=== PATIENT | male | born 1945 | race Caucasian/White ===

== ENCOUNTER 2018-09-21 07:09 | Day surgery (SDC) | payer MEDICARE ==
[~2018-09-21 07:09] MED LIST: Acetaminophen TAB* 325 MG PO PRN; Buffered Lidocaine 1% SYRIN* 1 ML/SYRINGE INTRADERM ONE
[2018-09-21] MEDS ORDERED: Lidocaine 1%* 5 ML VIAL ONE (08:01)
[2018-09-21] MEDS ORDERED: Cyclopentolate 1% OPTH.SOL* 2 ML BTL ONE (08:01)
[2018-09-21] MEDS ORDERED: Tetracaine 0.5% OPTH.SOL 4 ML* 1 DROP BTL ONE (08:01)
[2018-09-21] MEDS ORDERED: Neomycin/Polymy/Dex OPHTH.OIN* 3.5 GM ONE (08:01)
[2018-09-21] MEDS ORDERED: Ketorolac 0.5% OPHTH (NF) 0.5 % 5 ML BTL ONE (08:01)
[2018-09-21] MEDS ORDERED: Tropicamide 1% OPTH.SOL* BTL ONE (08:01)
[2018-09-21] MEDS ORDERED: Phenylephrine OPHTH SOL 2.5%* 2 ML ONE (08:01)
[2018-09-21] MEDS ORDERED: Midazolam* 1 MG/ML 2 ML VIAL (2 MG) ONE (08:24)
[2018-09-21 09:23] VITALS: BP 166/76
--- NOTE | 2018-09-21 10:31 | OP ---
DATE OF OPERATION/DATE OF DICTATION: 09/21/2018. DATE OF : 1945. SURGEON: Dr. Jayson Camacho. CALL MANAGER: None. ANESTHESIA: Topical with intravenous sedation. PRE-OP DIAGNOSIS: Cataract, left eye. POST-OP DIAGNOSIS: Cataract, left eye. OPERATIVE PROCEDURE: Phacoemulsification and cataract extraction with posterior chamber intraocular lens implant, left eye. COMPLICATIONS: None. BLOOD LOSS: None. OPERATIVE FINDINGS: The patient was brought to the operating room and received a small amount of int ravenous sedation. A drop of Tetracaine was placed in his left eye. He was prepped and draped in th e usual sterile fashion for ophthalmic surgery and attention was directed to the left eye where a spe culum was placed. A paracentesis was created at the 5 o'clock position and 0.1 cc of 1 percent prese rvative-free Lidocaine was injected into the anterior chamber followed by DisCoVisc. The eye was dig itally stabilized while a 2.75 mm keratome was used to create a triplanar clear corneal incision at t he 3 o'clock position. A continuous curvilinear capsulorrhexis was created with a cystotome and Utra ta forceps. BSS on a cannula was used to hydrodissect the lens from the capsule. Phacoemulsificatio n was performed in a [id number]-[id number] technique to create four fragments which were removed. Resid ual cortical material was removed with irrigation and aspiration. DisCoVisc was used to inflate the c apsular bag and an AUOOTO 13.5 diopter lens was folded and inserted into the capsular bag. DisCoVisc was removed using irrigation and aspiration. BSS on a cannula was used to hydrate the corneal jazmine a and seal the wound. At the end of the case the pupil was round and the lens was centered. The eye was of normal pressure and the wound was water tight. The speculum was removed and topical Maxitrol ointment was placed on the surface of the eye. The eye was closed, patched and shielded and the jamila ent was sent to the recovery room in stable condition with post operative instructions and follow-up appointment given. [id number] #: [id number]
== END 2018-09-21 09:23 | disposition home or self-care (01) ==
LOC: OREAST 07:09
PROVIDERS: ATTEND Ophthalmology
DX: H25.042 Posterior subcapsular polar age-related cataract, left eye (principal); I10 Essential (primary) hypertension; C83.33 Diffuse large B-cell lymphoma, intra-abdominal lymph nodes; Z85.028 Personal history of other malignant neoplasm of stomach
CPT/HCPCS: A9270-GY; J2250; V2632

== ENCOUNTER 2018-09-28 11:26 | Day surgery (SDC) | payer MEDICARE ==
[2018-09-28] MEDS ORDERED: Midazolam* 1 MG/ML 2 ML VIAL (2 MG) ONE (13:01)
[2018-09-28 13:42] VITALS: BP 141/64
[2018-09-28] MEDS ORDERED: Lidocaine 1%* 5 ML VIAL ONE (15:39)
[2018-09-28] MEDS ORDERED: Cyclopentolate 1% OPTH.SOL* 2 ML BTL ONE (15:39)
[2018-09-28] MEDS ORDERED: Neomycin/Polymy/Dex OPHTH.OIN* 3.5 GM ONE (15:40)
[2018-09-28] MEDS ORDERED: Tetracaine 0.5% OPTH.SOL 4 ML* 1 DROP BTL ONE (15:40)
[2018-09-28] MEDS ORDERED: Ketorolac 0.5% OPHTH (NF) 0.5 % 5 ML BTL ONE (15:40)
[2018-09-28] MEDS ORDERED: Phenylephrine OPHTH SOL 2.5%* 2 ML ONE (15:40)
[2018-09-28] MEDS ORDERED: Tropicamide 1% OPTH.SOL* BTL ONE (15:40)
--- NOTE | 2018-09-28 22:00 | OP ---
DATE OF OPERATION: 09/28/18 [facility] DATE OF : [birth year] SURGEON: Dr. Jayson Camacho. BERRY PLANTER: None. ANESTHESIA: Topical with intravenous sedation. PRE-OP DIAGNOSIS: Cataract, right eye. POST-OP DIAGNOSIS: Cataract, right eye. OPERATIVE PROCEDURE: Phacoemulsification and cataract extraction with posterior chamber intraocular lens implant, right eye. COMPLICATIONS: None. BLOOD LOSS: None. DESCRIPTION OF PROCEDURE: The patient was brought to the operating room and received a small amount of intravenous sedation. A drop of Tetracaine was placed in his right eye. He was prepped and draped in the usual sterile fashion for ophthalmic surgery and attention was directed to the right eye where a speculum was placed. A paracentesis was created at the 11 o'clock position and 0.1 cc of 1 percent preservative-free Lidocaine was injected into the anterior chamber followed by DisCoVisc. The eye was digitally stabilized while a 2.75 mm keratome was used to create a triplanar clear corneal incision at the 9 o'clock position. A continuous curvilinear capsulorrhexis was created with a cystotome and Utrata forceps. BSS on a cannula was used to hydrodissect the lens from the capsule. Phacoemulsification was performed in a divide-and- conquer technique to create four fragments which were removed. Residual cortical material was removed with irrigation and aspiration. DisCoVisc was used to inflate the capsular bag and an AU00T0 12.5 diopter lens was folded and inserted into the capsular bag. DisCoVisc was removed using irrigation and aspiration. BSS on a cannula was used to hydrate the corneal stroma and seal the wound. At the end of the case the pupil was round and the lens was centered. The eye was of normal pressure and the wound was water tight. The speculum was removed and topical Maxitrol ointment was placed on the surface of the eye. The eye was closed, patched and shielded and the patient was sent to the recovery room in stable condition with post operative instructions and follow-up appointment given. [id number]/[facility] #: [id number]
== END 2018-09-28 13:43 | disposition home or self-care (01) ==
LOC: OREAST 11:26
PROVIDERS: ATTEND Ophthalmology
DX: H25.041 Posterior subcapsular polar age-related cataract, right eye (principal); I10 Essential (primary) hypertension; Z85.028 Personal history of other malignant neoplasm of stomach; C83.33 Diffuse large B-cell lymphoma, intra-abdominal lymph nodes
CPT/HCPCS: A9270-GY; J2250; V2632

== ENCOUNTER 2023-10-10 10:29 | Inpatient (IN) ==
[2023-10-10] MEDS: Iodixanol (CONTRAST) 320 MG/ML 100 ML SDV IV ONE (10:43)
[2023-10-10 11:14] LABS: ABS Eosinophils 0.1 10^3/uL (0.0-0.5); ABS Lymphocytes 0.8 10^3/uL (1.0-4.8); ABS Monocytes 0.4 10^3/uL (0.0-1.1); ABS Neutrophils 3.5 10^3/uL (1.5-7.6); ABS Nucleated RBC 0.01 10^3/ul; Eosinophil % 1.5 %; Hematocrit 40.9 % (38-53); Hemoglobin 14.5 g/dL (13.2-16.3); Lymphocyte % 17.2 %; Mean Corpuscular Hemoglobin 35.8 pg (27-33); Mean Corpuscular Hgb Conc 35.6 g/dL (31-36); Mean Corpuscular Volume 100.5 fL (80-97); Mean Platelet Volume 8.3 fL (7.5-11.2); Nucleated Red Blood Cells % 0.1 %/100WBC (0.0-0.8); Platelet Count 176 10^3/uL (150-450); Red Blood Count 4.07 10^6/uL (4.06-5.63); White Blood Count 4.9 10^3/uL (3.6-10.2)
[2023-10-10 11:16] LABS: Urine Appearance Clear; Urine Bilirubin Negative (Negative); Urine Blood Negative (Negative); Urine Color Light-Yellow; Urine Glucose Negative (Negative); Urine Ketones Negative (Negative); Urine Nitrite Negative (Negative); Urine Protein Negative (Negative); Urine Specific Gravity 1.029 (1.002-1.030); Urine Urobilinogen Negative (Negative)
[2023-10-10 11:19] LABS: Activated Partial Thrombo Time 29.6 seconds (26.0-38.0); INR 1.21 (0.83-1.13)
[2023-10-10] MEDS ORDERED: Labetalol IV 5 MG/ML 20 ml VIAL IV PUSH ONE (11:20)
[2023-10-10] MEDS ORDERED: niCARdipine 0.1MG/ML IVPREMIX 20 MG/200 ML BAG IV ONE (11:23)
[2023-10-10] MEDS: niCARdipine 0.1MG/ML IVPREMIX 20 MG/200 ML BAG IV SCH (11:25)
[2023-10-10 11:32] LABS: ALT 23 U/L (7-52); Albumin 3.9 g/dL (3.2-5.2); Albumin/Globulin Ratio 1.3 (1-3); Alkaline Phosphatase 89 U/L (35-149); Blood Urea Nitrogen 15 mg/dL (6-24); CO2 Carbon Dioxide 28 mmol/L (22-32); Calcium 8.6 mg/dL (8.6-10.3); Chloride 104 mmol/L (101-111); Cholesterol 136 mg/dL; Creatinine, Serum 0.82 mg/dL (0.67-1.17); Globulin 2.9 g/dL (2-4); Glucose 106 mg/dL (70-100); HDL Cholesterol 30.1 mg/dL; LDL Cholesterol 75 mg/dL; Sodium 136 mmol/L (135-145); Total Protein 6.8 g/dL (6.4-8.9); Triglycerides 154 mg/dL
[2023-10-10 11:34] LABS: Anion Gap 4 mmol/L (2-16)
[2023-10-10 11:52] LABS: High Sens Troponin Baseline 10 pg/mL (<20)
[2023-10-10] MEDS: TENECTEPLASE 50 MG VIAL KIT 5 MG/ML (reconstituted) IV ONE (12:13)
[2023-10-10 13:30] LABS: Potassium Redraw 3.7 mmol/L (3.5-5.0)
[2023-10-10] MEDS: Ondansetron 4 mg VIAL 2 MG/ML 2 ml VIAL IV PRN (14:36)
[2023-10-10] MEDS: fentaNYL INFUSION 50 mcg/mL VL 2,500 MCG/50 ML VIAL IV SCH (16:58)
[2023-10-10] MEDS: Rocuronium 50 mg VIAL 10 mg/ml 5 ml VIAL (50 mg) ONE (17:21)
[2023-10-10] MEDS: Succinylcholine 200 mg VIAL 20 mg/ml 10 ml VIAL (200 mg) ONE (17:21)
[2023-10-10] MEDS ORDERED: Chlorhexidine MOUTHWASH 0.12% 15 ML UDC TOPICAL SCH (18:00)
[2023-10-10 18:11] VITALS: BP 158/91
[2023-10-10] MEDS: Prochlorperazine 5 mg/ml 2 ml VIAL (10 mg) IV ONE (18:40)
[2023-10-10] MEDS: niCARdipine 0.1MG/ML IVPREMIX 20 MG/200 ML BAG IV ONE (18:40)
[2023-10-10] MEDS: Propofol 10 mg/ml 100 ML BTL 1,000 MG/100 ML BTL IV SCH (18:41)
[2023-10-10] MEDS: Propofol 10 mg/ml 100 ML BTL 1,000 MG/100 ML BTL ONE (18:41)
== END 2023-10-10 13:25 | disposition short-term general hospital (02) | DRG 62 ==
LOC: ED 10:29 → EDHOLD 12:32 → ICU 13:24 → UNDODISIN 13:25 → ICU 13:30
PROVIDERS: ADMIT Internal Medicine; ATTEND Internal Medicine

== ENCOUNTER 2023-11-13 07:22 | Inpatient (IN) ==
[2023-12-11] MEDS: Potassium & Sodium Phos 250 mg = 1 PACKET G TUBE SCH (21:52)
[2023-12-11] MEDS: Senna TAB 8.6 mg TAB G TUBE SCH (21:53)
[2023-12-13] MEDS: Al Hydrox/Mg Hydrox/Simet LIQ 30 ML UDC PO ONE (05:02)
[2023-12-13 05:54] LABS: ABS Basophils 0.1 10^3/uL (0.0-0.1); ABS Eosinophils 0.2 10^3/uL (0.0-0.5); ABS Lymphocytes 0.9 10^3/uL (1.0-4.8); ABS Monocytes 0.4 10^3/uL (0.0-1.1); ABS Nucleated RBC 0.01 10^3/ul; Eosinophil % 3.5 %; Hemoglobin 10.5 g/dL (13.2-16.3); Lymphocyte % 14.3 %; Mean Corpuscular Hemoglobin 34.3 pg (27-33); Mean Corpuscular Hgb Conc 34.9 g/dL (31-36); Mean Corpuscular Volume 98.3 fL (80-97); Nucleated Red Blood Cells % 0.1 %/100WBC (0.0-0.8); Platelet Count 244 10^3/uL (150-450); Red Blood Count 3.05 10^6/uL (4.06-5.63); Red Cell Distribution Width 16.2 % (12-17); White Blood Count 6.6 10^3/uL (3.6-10.2)
[2023-12-13 06:53] LABS: Albumin 2.8 g/dL (3.2-5.2); Albumin/Globulin Ratio 0.9 (1-3); Calcium 8.3 mg/dL (8.6-10.3); Creatinine, Serum 0.69 mg/dL (0.67-1.17); Globulin 3.1 g/dL (2-4); Total Bilirubin 0.6 mg/dL (0.2-1.0); Total Protein 5.9 g/dL (6.4-8.9); eGFR CKD-EPI 95.3 (>60)
[2023-12-13] MEDS: Ondansetron 4 mg VIAL 2 MG/ML 2 ml VIAL IV PRN (17:42)
[2023-12-14] MEDS: Scopolamine 1 mg/72hr PATCH TRANSDERM SCH (10:04)
[2023-12-14] MEDS: Famotidine SUSP ORALSYR 8 MG/ML G TUBE SCH (10:06)
[2023-12-16 06:11] LABS: ABS Eosinophils 0.1 10^3/uL (0.0-0.5); ABS Lymphocytes 0.9 10^3/uL (1.0-4.8); ABS Monocytes 0.4 10^3/uL (0.0-1.1); ABS Neutrophils 5.9 10^3/uL (1.5-7.6); Eosinophil % 1.8 %; Hematocrit 28.5 % (38-53); Hemoglobin 10.1 g/dL (13.2-16.3); Lymphocyte % 12.3 %; Mean Corpuscular Hgb Conc 35.5 g/dL (31-36); Mean Corpuscular Volume 98.7 fL (80-97); Mean Platelet Volume 7.3 fL (7.5-11.2); Platelet Count 193 10^3/uL (150-450); Red Blood Count 2.88 10^6/uL (4.06-5.63); Red Cell Distribution Width 16.7 % (12-17); White Blood Count 7.4 10^3/uL (3.6-10.2)
[2023-12-16 06:43] LABS: Albumin 2.7 g/dL (3.2-5.2); Albumin/Globulin Ratio 0.9 (1-3); Calcium 8.1 mg/dL (8.6-10.3); Creatinine, Serum 0.65 mg/dL (0.67-1.17); Potassium 3.9 mmol/L (3.5-5.0); Total Bilirubin 0.6 mg/dL (0.2-1.0); Total Protein 5.7 g/dL (6.4-8.9)
[2023-12-16 22:51] LABS: Phosphorus 3.7 mg/dL (2.5-5.0)
[2023-12-17] MEDS: Potassium & Sodium Phos 250 mg = 1 PACKET G TUBE SCH (20:45)
[2023-12-17] MEDS: Famotidine SUSP ORALSYR 8 MG/ML G TUBE SCH (20:46)
[2023-12-20 09:46] LABS: Calcium 8.1 mg/dL (8.6-10.3); Creatinine, Serum 0.59 mg/dL (0.67-1.17); eGFR CKD-EPI 99.9 (>60)
[2023-12-23 05:41] LABS: ABS Eosinophils 0.2 10^3/uL (0.0-0.5); ABS Lymphocytes 0.9 10^3/uL (1.0-4.8); ABS Monocytes 0.4 10^3/uL (0.0-1.1); ABS Neutrophils 3.8 10^3/uL (1.5-7.6); Eosinophil % 3.4 %; Hematocrit 29.8 % (38-53); Hemoglobin 10.4 g/dL (13.2-16.3); Lymphocyte % 16.6 %; Mean Corpuscular Hemoglobin 34.5 pg (27-33); Mean Corpuscular Hgb Conc 34.9 g/dL (31-36); Mean Corpuscular Volume 98.7 fL (80-97); Mean Platelet Volume 7.8 fL (7.5-11.2); Platelet Count 216 10^3/uL (150-450); Red Blood Count 3.02 10^6/uL (4.06-5.63); Red Cell Distribution Width 17.3 % (12-17); White Blood Count 5.3 10^3/uL (3.6-10.2)
[2023-12-23 06:06] LABS: Albumin 2.8 g/dL (3.2-5.2); Albumin/Globulin Ratio 0.9 (1-3); Calcium 8.2 mg/dL (8.6-10.3); Creatinine, Serum 0.66 mg/dL (0.67-1.17); Total Bilirubin 0.7 mg/dL (0.2-1.0); Total Protein 5.8 g/dL (6.4-8.9); eGFR CKD-EPI 96.6 (>60)
[2023-12-23 08:01] LABS: Phosphorus 4.2 mg/dL (2.5-5.0)
[2023-12-23] MEDS: Potassium & Sodium Phos 250 mg = 1 PACKET G TUBE SCH (10:39)
[2023-12-24] MEDS: Ondansetron SOLN ORALSYR 0.8 MG/ML PO SCH (10:29)
[2023-12-25 09:29] LABS: Albumin 2.8 g/dL (3.2-5.2); Albumin/Globulin Ratio 0.9 (1-3); Calcium 8.2 mg/dL (8.6-10.3); Creatinine, Serum 0.67 mg/dL (0.67-1.17); Globulin 3.1 g/dL (2-4); Total Bilirubin 0.7 mg/dL (0.2-1.0); Total Protein 5.9 g/dL (6.4-8.9); eGFR CKD-EPI 96.2 (>60)
[2023-12-25] MEDS: Lidocaine PATCH 5% PATCH TRANSDERM SCH (11:25)
[2023-12-25 12:12] LABS: Phosphorus 4.3 mg/dL (2.5-5.0)
[2023-12-25 18:40] LABS: TSH Ultra Thyroid Stim Horm 2.76 mcIU/mL (0.34-5.60)
[2023-12-25 18:54] LABS: Magnesium 1.9 mg/dL (1.9-2.7)
[2023-12-25 19:12] LABS: Ferritin 106.2 ng/mL (24-336); Free T4 1.47 ng/dL (0.61-1.12)
[2023-12-26 05:14] LABS: ABS Eosinophils 0.2 10^3/uL (0.0-0.5); ABS Lymphocytes 0.9 10^3/uL (1.0-4.8); ABS Monocytes 0.3 10^3/uL (0.0-1.1); ABS Neutrophils 2.7 10^3/uL (1.5-7.6); Eosinophil % 4.3 %; Hematocrit 28.2 % (38-53); Mean Corpuscular Hemoglobin 35.2 pg (27-33); Mean Corpuscular Hgb Conc 35.6 g/dL (31-36); Mean Corpuscular Volume 98.9 fL (80-97); Mean Platelet Volume 7.7 fL (7.5-11.2); Platelet Count 194 10^3/uL (150-450); Red Blood Count 2.86 10^6/uL (4.06-5.63); Red Cell Distribution Width 17.1 % (12-17); White Blood Count 4.1 10^3/uL (3.6-10.2)
[2023-12-26] MEDS: PAIN RELIEVING RUB (MENTHOL/SALICYLATE) 1 APPLIC TUBE TOPICAL SCH (15:44)
[2023-12-27] MEDS ORDERED: Glycerin ADULT 2.4 gm SUPP PR PRN (09:17)
[2023-12-27] MEDS: Sulfur Hexaflouride MICROSPHR 25 MG VIAL IV ONE (11:01)
[2023-12-27] MEDS: Senna TAB 8.6 mg TAB G TUBE SCH (21:37)
[2023-12-28] MEDS: Ondansetron SOLN ORALSYR 0.8 MG/ML PO PRN (05:41)
[2023-12-28] MEDS: Ondansetron SOLN ORALSYR 0.8 MG/ML PO SCH (05:41)
[2023-12-28 06:14] LABS: ABS Eosinophils 0.1 10^3/uL (0.0-0.5); ABS Lymphocytes 0.7 10^3/uL (1.0-4.8); ABS Monocytes 0.3 10^3/uL (0.0-1.1); ABS Neutrophils 4.9 10^3/uL (1.5-7.6); Eosinophil % 2.3 %; Hematocrit 29.3 % (38-53); Hemoglobin 10.3 g/dL (13.2-16.3); Lymphocyte % 11.4 %; Mean Corpuscular Hemoglobin 34.9 pg (27-33); Mean Corpuscular Volume 99.6 fL (80-97); Mean Platelet Volume 8.1 fL (7.5-11.2); Platelet Count 199 10^3/uL (150-450); Red Blood Count 2.94 10^6/uL (4.06-5.63); Red Cell Distribution Width 17.1 % (12-17); White Blood Count 6.1 10^3/uL (3.6-10.2)
[2023-12-28 06:48] LABS: Albumin 2.8 g/dL (3.2-5.2); Calcium 8.2 mg/dL (8.6-10.3); Creatinine, Serum 0.69 mg/dL (0.67-1.17); Globulin 2.8 g/dL (2-4); Potassium 4.2 mmol/L (3.5-5.0); Total Bilirubin 0.5 mg/dL (0.2-1.0); Total Protein 5.6 g/dL (6.4-8.9); eGFR CKD-EPI 95.3 (>60)
[2024-01-01 10:46] LABS: Albumin/Globulin Ratio 0.8 (1-3); Calcium 8.6 mg/dL (8.6-10.3); Creatinine, Serum 0.74 mg/dL (0.67-1.17); Globulin 3.6 g/dL (2-4); Potassium 4.1 mmol/L (3.5-5.0); Total Bilirubin 1.1 mg/dL (0.2-1.0); Total Protein 6.6 g/dL (6.4-8.9); eGFR CKD-EPI 93.3 (>60)
[2024-01-01 10:58] LABS: Hemoglobin 10.7 g/dL (13.2-16.3); Mean Corpuscular Hemoglobin 33.5 pg (27-33); Mean Corpuscular Hgb Conc 33.5 g/dL (31-36); Mean Corpuscular Volume 99.8 fL (80-97); Mean Platelet Volume 8.4 fL (7.5-11.2); Platelet Count 193 10^3/uL (150-450); Red Blood Count 3.21 10^6/uL (4.06-5.63); Red Cell Distribution Width 17.4 % (12-17); White Blood Count 19.2 10^3/uL (3.6-10.2)
[2024-01-01] MEDS ORDERED: Zosyn per Pharmacy NOTE FOLLOW UP SCH (12:00)
[2024-01-01 12:55] LABS: ABS Basophils 0.1 10^3/uL (0.0-0.1); ABS Lymphocytes 0.8 10^3/uL (1.0-4.8); ABS Neutrophils 17.3 10^3/uL (1.5-7.6); Lymphocyte % 4.2 %
[2024-01-01] MEDS: Piperacillin/Tazobac 3.375 BAG 3.375 GM/100 ML BAG IV ONE (13:22)
[2024-01-01 16:44] VITALS: BP 117/62
[2024-01-01] MEDS ORDERED: ZOSYN 3.375 GM Q8H per EXTENDED INFUSION IV SCH (18:00)
== END 2024-01-01 23:36 | disposition short-term general hospital (02) | DRG 64 ==
LOC: PMRU 12-11 11:31
PROVIDERS: ADMIT Physical Medicine & Rehabilitation; ATTEND Physical Medicine & Rehabilitation

== ENCOUNTER 2024-01-01 16:13 | Inpatient (IN) ==
[2024-01-01 17:12] LABS: Hematocrit 30.5 % (38-53); Hemoglobin 10.6 g/dL (13.2-16.3); Mean Corpuscular Hemoglobin 34.9 pg (27-33); Mean Corpuscular Hgb Conc 34.8 g/dL (31-36); Mean Corpuscular Volume 100.3 fL (80-97); Mean Platelet Volume 8.4 fL (7.5-11.2); Platelet Count 181 10^3/uL (150-450); Red Blood Count 3.05 10^6/uL (4.06-5.63); Red Cell Distribution Width 17.6 % (12-17); White Blood Count 6.7 10^3/uL (3.6-10.2)
[2024-01-01 17:15] LABS: Albumin 2.8 g/dL (3.2-5.2); Albumin/Globulin Ratio 0.9 (1-3); Calcium 8.3 mg/dL (8.6-10.3); Creatinine, Serum 0.82 mg/dL (0.67-1.17); Globulin 3.1 g/dL (2-4); Magnesium 1.5 mg/dL (1.9-2.7); Potassium 4.2 mmol/L (3.5-5.0); Total Bilirubin 1.3 mg/dL (0.2-1.0); Total Protein 5.9 g/dL (6.4-8.9); eGFR CKD-EPI 90.5 (>60)
[2024-01-01 17:16] LABS: INR 1.78 (0.83-1.13)
[2024-01-01 17:22] LABS: C Reactive Protein 296.38 mg/L (<8.01)
[2024-01-01] MEDS: LACTATED RINGERS SEPSIS IV ONE (17:29)
[2024-01-01] MEDS: Acetaminophen IV 1 GM/100ML 920 MG/92 ML BAG IV ONE (17:37)
[2024-01-01 17:55] LABS: ABS Lymphocytes 0.4 10^3/uL (1.0-4.8); ABS Neutrophils 6.3 10^3/uL (1.5-7.6); ABS Nucleated RBC 0.01 10^3/ul; Eosinophil % 0.1 %; Lymphocyte % 6.1 %; Nucleated Red Blood Cells % 0.1 %/100WBC (0.0-0.8)
[2024-01-01] MEDS ORDERED: Vancomycin 1,250 MG in NS 0.9% 250 ml 250 ML IVPB SCH (18:00)
[2024-01-01 18:45] LABS: High Sensitivity Troponin 1 Hr 49 pg/mL (<20)
[2024-01-01] MEDS: Norepinephrine 4 MG/250mL D5W 4,000 MCG/250 ML BAG IV SCH (19:01)
[2024-01-01] MEDS: Amiodarone 150 mg IVPREMIX 150 MG/100 ML BAG IV ONE (19:43)
[2024-01-01] MEDS: Cefepime 2 GM in Dextrose 2 GM/50 ML BAG IV ONE (19:44)
[2024-01-01 19:51] LABS: Urine Appearance Turbid; Urine Bilirubin Negative (Negative); Urine Blood Negative (Negative); Urine Color Yellow; Urine Glucose Negative (Negative); Urine Ketones Trace (Negative); Urine Nitrite Negative (Negative); Urine Protein 1+ (>=30 mg/dL) (Negative); Urine Specific Gravity 1.029 (1.002-1.030); Urine Urobilinogen 1+ (Negative)
[2024-01-01 19:56] LABS: Venous Bicarbonate HCO3 26.6 mmol/L (24-28)
[2024-01-01] MEDS: Vancomycin 1,000 MG - ED ONCE IVPB ONE (20:07)
[2024-01-01 20:09] LABS: Urine Bacteria 1+ /HPF (Absent); Urine Red Blood Cell Trace(0-2/hpf) /HPF (0-Trace); Urine Squamous Epithelial Cell Present /HPF (Absent); Urine White Blood Cell 3+(>20/hpf) /HPF (0-Trace)
[2024-01-01] MEDS: Magnesium Sulf 4 GM/100 ML IV 4,000 MG/100 ML BAG IVPB ONE (22:45)
[2024-01-02] MEDS ORDERED: Vancomycin per Pharmacy 1 EA NOTE FOLLOW UP SCH (01:00)
[2024-01-02 02:21] LABS: High Sensitivity Troponin 3 Hr 75 pg/mL (<20)
[2024-01-02] MEDS: Enoxaparin 60 MG/0.6 ML SYR SUBCUT SCH (03:45)
[2024-01-02 04:19] LABS: ABS Lymphocytes 0.6 10^3/uL (1.0-4.8); ABS Monocytes 0.4 10^3/uL (0.0-1.1); ABS Neutrophils 12.6 10^3/uL (1.5-7.6); ABS Nucleated RBC 0.01 10^3/ul; Eosinophil % 0.3 %; Hematocrit 26.7 % (38-53); Hemoglobin 9.4 g/dL (13.2-16.3); Lymphocyte % 4.4 %; Mean Corpuscular Hemoglobin 35.1 pg (27-33); Mean Corpuscular Hgb Conc 35.3 g/dL (31-36); Mean Corpuscular Volume 99.3 fL (80-97); Mean Platelet Volume 8.1 fL (7.5-11.2); Nucleated Red Blood Cells % 0.1 %/100WBC (0.0-0.8); Platelet Count 160 10^3/uL (150-450); Red Blood Count 2.69 10^6/uL (4.06-5.63); Red Cell Distribution Width 17.7 % (12-17); White Blood Count 13.7 10^3/uL (3.6-10.2)
[2024-01-02] MEDS: Cefepime 2 GM in Dextrose 2 GM/50 ML BAG IV SCH (04:28)
[2024-01-02 05:02] LABS: Albumin 2.2 g/dL (3.2-5.2); Albumin/Globulin Ratio 0.8 (1-3); Calcium 7.7 mg/dL (8.6-10.3); Creatinine, Serum 0.71 mg/dL (0.67-1.17); Globulin 2.6 g/dL (2-4); Magnesium 2.6 mg/dL (1.9-2.7); Phosphorus 2.9 mg/dL (2.5-5.0); Potassium 3.8 mmol/L (3.5-5.0); Total Bilirubin 1.2 mg/dL (0.2-1.0); Total Protein 4.8 g/dL (6.4-8.9); eGFR CKD-EPI 94.5 (>60)
[2024-01-02] MEDS: Vancomycin 1,250 MG in NS 0.9% 250 ml 250 ML IVPB SCH (07:27)
[2024-01-02] MEDS: Acetaminophen IV 1 GM/100ML 1,000 MG/100 ML BAG IV PRN (08:42)
[2024-01-02] MEDS: Enoxaparin 80 MG/0.8 ML SYR SUBCUT SCH (11:31)
[2024-01-02] MEDS: PAIN RELIEVING RUB (MENTHOL/SALICYLATE) 1 APPLIC TUBE TOPICAL PRN (16:18)
[2024-01-02] MEDS: Ondansetron 4 mg VIAL 2 MG/ML 2 ml VIAL IV PRN (20:03)
[2024-01-02] MEDS: Famotidine SUSP ORALSYR 8 MG/ML FEED TUBE SCH (20:56)
[2024-01-02] MEDS: Senna TAB 8.6 mg TAB PO SCH (20:56)
[2024-01-03 05:13] LABS: ABS Lymphocytes 0.2 10^3/uL (1.0-4.8); ABS Monocytes 0.2 10^3/uL (0.0-1.1); ABS Neutrophils 4.2 10^3/uL (1.5-7.6); Eosinophil % 0.7 %; Hematocrit 24.3 % (38-53); Hemoglobin 8.5 g/dL (13.2-16.3); Lymphocyte % 5.3 %; Mean Corpuscular Hemoglobin 34.7 pg (27-33); Mean Corpuscular Hgb Conc 34.8 g/dL (31-36); Mean Corpuscular Volume 99.6 fL (80-97); Mean Platelet Volume 7.9 fL (7.5-11.2); Platelet Count 126 10^3/uL (150-450); Red Blood Count 2.44 10^6/uL (4.06-5.63); Red Cell Distribution Width 17.4 % (12-17); White Blood Count 4.7 10^3/uL (3.6-10.2)
[2024-01-03 05:52] LABS: Albumin 2.1 g/dL (3.2-5.2); Albumin/Globulin Ratio 0.8 (1-3); Calcium 7.4 mg/dL (8.6-10.3); Creatinine, Serum 0.63 mg/dL (0.67-1.17); Globulin 2.6 g/dL (2-4); Magnesium 1.9 mg/dL (1.9-2.7); Potassium 3.7 mmol/L (3.5-5.0); Total Bilirubin 0.5 mg/dL (0.2-1.0); Total Protein 4.7 g/dL (6.4-8.9)
[2024-01-03] MEDS ORDERED: Vancomycin Trough Check NOTE FOLLOW UP ONE (06:00)
[2024-01-03] MEDS: [UNRECOGNIZED DRUG - OTHER] PO SCH (09:15)
[2024-01-03] MEDS: Metoclopramide 5 MG/ML VIAL (10 mg) IV SLOW PU ONE (15:06)
[2024-01-04 05:37] LABS: Hematocrit 24.7 % (38-53); Hemoglobin 8.6 g/dL (13.2-16.3); Mean Corpuscular Hemoglobin 34.3 pg (27-33); Mean Corpuscular Hgb Conc 34.8 g/dL (31-36); Mean Corpuscular Volume 98.4 fL (80-97); Mean Platelet Volume 7.8 fL (7.5-11.2); Platelet Count 134 10^3/uL (150-450); Red Blood Count 2.51 10^6/uL (4.06-5.63); White Blood Count 4.5 10^3/uL (3.6-10.2)
[2024-01-04 06:24] LABS: Albumin 2.2 g/dL (3.2-5.2); Albumin/Globulin Ratio 0.8 (1-3); Calcium 7.7 mg/dL (8.6-10.3); Creatinine, Serum 0.57 mg/dL (0.67-1.17); Globulin 2.7 g/dL (2-4); Magnesium 1.9 mg/dL (1.9-2.7); Phosphorus 2.8 mg/dL (2.5-5.0); Potassium 3.5 mmol/L (3.5-5.0); Total Bilirubin 0.6 mg/dL (0.2-1.0); Total Protein 4.9 g/dL (6.4-8.9)
[2024-01-04 07:40] LABS: ABS Lymphocytes 0.4 10^3/uL (1.0-4.8); ABS Monocytes 0.3 10^3/uL (0.0-1.1); ABS Neutrophils 3.7 10^3/uL (1.5-7.6); Eosinophil % 0.9 %; Lymphocyte % 8.9 %; RBC Morphology Normal (Normal)
[2024-01-04] MEDS: Potassium Chloride LIQUID 20 MEQ/15 ML LIQUID PEG TUBE ONE (14:46)
[2024-01-04] MEDS: Magnesium Sulfate 2 gm BAG 2 GM/50 ML BAG IVPB ONE (14:46)
[2024-01-05 04:46] LABS: ABS Eosinophils 0.1 10^3/uL (0.0-0.5); ABS Lymphocytes 0.6 10^3/uL (1.0-4.8); ABS Monocytes 0.5 10^3/uL (0.0-1.1); ABS Neutrophils 3.4 10^3/uL (1.5-7.6); Eosinophil % 2.2 %; Hematocrit 25.4 % (38-53); Hemoglobin 8.8 g/dL (13.2-16.3); Lymphocyte % 12.7 %; Mean Corpuscular Hemoglobin 34.2 pg (27-33); Mean Corpuscular Hgb Conc 34.7 g/dL (31-36); Mean Corpuscular Volume 98.8 fL (80-97); Mean Platelet Volume 7.5 fL (7.5-11.2); Nucleated Red Blood Cells % 0.1 %/100WBC (0.0-0.8); Platelet Count 146 10^3/uL (150-450); Red Blood Count 2.57 10^6/uL (4.06-5.63); Red Cell Distribution Width 16.9 % (12-17); White Blood Count 4.5 10^3/uL (3.6-10.2)
[2024-01-05 05:25] LABS: Albumin 2.4 g/dL (3.2-5.2); Albumin/Globulin Ratio 0.8 (1-3); Calcium 7.8 mg/dL (8.6-10.3); Creatinine, Serum 0.56 mg/dL (0.67-1.17); Globulin 2.9 g/dL (2-4); Magnesium 2.2 mg/dL (1.9-2.7); Phosphorus 3.3 mg/dL (2.5-5.0); Potassium 4.1 mmol/L (3.5-5.0); Total Bilirubin 0.6 mg/dL (0.2-1.0); Total Protein 5.3 g/dL (6.4-8.9); eGFR CKD-EPI 101.5 (>60)
[2024-01-05] MEDS: hydrALAZINE 20 mg/ml 1 ML Vial IV IV SLOW PU ONE (11:26)
[2024-01-05 12:38] LABS: TSH Ultra Thyroid Stim Horm 4.04 mcIU/mL (0.34-5.60)
[2024-01-06 04:47] LABS: ABS Eosinophils 0.1 10^3/uL (0.0-0.5); ABS Lymphocytes 0.6 10^3/uL (1.0-4.8); ABS Monocytes 0.7 10^3/uL (0.0-1.1); ABS Neutrophils 6.8 10^3/uL (1.5-7.6); Eosinophil % 0.8 %; Hematocrit 29.3 % (38-53); Hemoglobin 10.2 g/dL (13.2-16.3); Lymphocyte % 7.2 %; Mean Corpuscular Hemoglobin 34.2 pg (27-33); Mean Corpuscular Hgb Conc 34.7 g/dL (31-36); Mean Corpuscular Volume 98.5 fL (80-97); Mean Platelet Volume 7.4 fL (7.5-11.2); Platelet Count 198 10^3/uL (150-450); Red Blood Count 2.98 10^6/uL (4.06-5.63); Red Cell Distribution Width 17.2 % (12-17); White Blood Count 8.2 10^3/uL (3.6-10.2)
[2024-01-06 05:23] LABS: Albumin 2.7 g/dL (3.2-5.2); Albumin/Globulin Ratio 0.8 (1-3); Calcium 8.2 mg/dL (8.6-10.3); Creatinine, Serum 0.55 mg/dL (0.67-1.17); Globulin 3.2 g/dL (2-4); Phosphorus 4.1 mg/dL (2.5-5.0); Potassium 3.9 mmol/L (3.5-5.0); Total Bilirubin 0.7 mg/dL (0.2-1.0); Total Protein 5.9 g/dL (6.4-8.9); eGFR CKD-EPI 102.1 (>60)
[2024-01-06] MEDS: Potassium Chloride LIQUID 20 MEQ/15 ML LIQUID PEG TUBE ONE (09:50)
[2024-01-07 04:27] LABS: ABS Basophils 0.1 10^3/uL (0.0-0.1); ABS Eosinophils 0.1 10^3/uL (0.0-0.5); ABS Lymphocytes 0.7 10^3/uL (1.0-4.8); ABS Monocytes 0.5 10^3/uL (0.0-1.1); ABS Neutrophils 5.9 10^3/uL (1.5-7.6); Eosinophil % 1.9 %; Hemoglobin 9.4 g/dL (13.2-16.3); Lymphocyte % 9.3 %; Mean Corpuscular Hemoglobin 33.9 pg (27-33); Mean Corpuscular Hgb Conc 34.7 g/dL (31-36); Mean Corpuscular Volume 97.9 fL (80-97); Mean Platelet Volume 7.1 fL (7.5-11.2); Platelet Count 205 10^3/uL (150-450); Red Blood Count 2.76 10^6/uL (4.06-5.63); Red Cell Distribution Width 16.9 % (12-17); White Blood Count 7.3 10^3/uL (3.6-10.2)
[2024-01-07 05:21] LABS: Albumin 2.5 g/dL (3.2-5.2); Albumin/Globulin Ratio 0.8 (1-3); Calcium 7.9 mg/dL (8.6-10.3); Creatinine, Serum 0.64 mg/dL (0.67-1.17); Phosphorus 3.1 mg/dL (2.5-5.0); Potassium 4.1 mmol/L (3.5-5.0); Total Bilirubin 0.6 mg/dL (0.2-1.0); Total Protein 5.5 g/dL (6.4-8.9); eGFR CKD-EPI 97.5 (>60)
[2024-01-07] MEDS: Potassium & Sodium Phos 250 mg = 1 PACKET FEED TUBE SCH (08:43)
[2024-01-07] MEDS: cefTRIAXone 2 gm/50 mL D5W 2 GM/50 ML BAG IV SCH (12:51)
[2024-01-07] MEDS: Cefepime 2 GM in Dextrose 2 GM/50 ML BAG IV SCH (13:20)
[2024-01-08 04:55] LABS: ABS Eosinophils 0.1 10^3/uL (0.0-0.5); ABS Lymphocytes 0.7 10^3/uL (1.0-4.8); ABS Monocytes 0.7 10^3/uL (0.0-1.1); ABS Neutrophils 10.1 10^3/uL (1.5-7.6); Eosinophil % 1.3 %; Hematocrit 28.9 % (38-53); Hemoglobin 9.9 g/dL (13.2-16.3); Lymphocyte % 5.8 %; Mean Corpuscular Hemoglobin 33.5 pg (27-33); Mean Corpuscular Hgb Conc 34.2 g/dL (31-36); Mean Corpuscular Volume 97.9 fL (80-97); Mean Platelet Volume 7.1 fL (7.5-11.2); Platelet Count 279 10^3/uL (150-450); Red Blood Count 2.95 10^6/uL (4.06-5.63); Red Cell Distribution Width 17.6 % (12-17); White Blood Count 11.6 10^3/uL (3.6-10.2)
[2024-01-08 05:36] LABS: Calcium 8.2 mg/dL (8.6-10.3); Creatinine, Serum 0.57 mg/dL (0.67-1.17); Potassium 4.2 mmol/L (3.5-5.0)
[2024-01-09 04:35] LABS: ABS Basophils 0.1 10^3/uL (0.0-0.1); ABS Eosinophils 0.2 10^3/uL (0.0-0.5); ABS Lymphocytes 0.9 10^3/uL (1.0-4.8); ABS Monocytes 0.6 10^3/uL (0.0-1.1); ABS Neutrophils 10.7 10^3/uL (1.5-7.6); Eosinophil % 1.6 %; Hematocrit 25.6 % (38-53); Hemoglobin 8.9 g/dL (13.2-16.3); Lymphocyte % 6.9 %; Mean Corpuscular Hemoglobin 34.2 pg (27-33); Mean Corpuscular Hgb Conc 34.9 g/dL (31-36); Mean Platelet Volume 7.1 fL (7.5-11.2); Platelet Count 279 10^3/uL (150-450); Red Blood Count 2.61 10^6/uL (4.06-5.63); Red Cell Distribution Width 17.3 % (12-17); White Blood Count 12.4 10^3/uL (3.6-10.2)
[2024-01-09 05:36] LABS: Albumin 2.5 g/dL (3.2-5.2); Albumin/Globulin Ratio 0.8 (1-3); Creatinine, Serum 0.55 mg/dL (0.67-1.17); Globulin 3.1 g/dL (2-4); Potassium 4.3 mmol/L (3.5-5.0); Total Bilirubin 0.4 mg/dL (0.2-1.0); Total Protein 5.6 g/dL (6.4-8.9); eGFR CKD-EPI 102.1 (>60)
[2024-01-09 13:06] LABS: Ferritin 253.6 ng/mL (24-336)
[2024-01-09] MEDS: Scopolamine 1 mg/72hr PATCH TRANSDERM SCH (14:27)
[2024-01-09] MEDS: Magnesium Hydroxide LIQ 30 ML UDC PO PRN (14:27)
[2024-01-09] MEDS: Magnesium Hydroxide LIQ 30 ML UDC PO SCH (21:21)
[2024-01-10 06:42] LABS: ABS Eosinophils 0.2 10^3/uL (0.0-0.5); ABS Lymphocytes 0.8 10^3/uL (1.0-4.8); ABS Monocytes 0.5 10^3/uL (0.0-1.1); ABS Neutrophils 7.9 10^3/uL (1.5-7.6); Eosinophil % 1.8 %; Hematocrit 27.8 % (38-53); Hemoglobin 9.6 g/dL (13.2-16.3); Lymphocyte % 8.9 %; Mean Corpuscular Hemoglobin 33.5 pg (27-33); Mean Corpuscular Hgb Conc 34.6 g/dL (31-36); Mean Corpuscular Volume 96.9 fL (80-97); Mean Platelet Volume 7.1 fL (7.5-11.2); Platelet Count 352 10^3/uL (150-450); Red Blood Count 2.87 10^6/uL (4.06-5.63); Red Cell Distribution Width 17.3 % (12-17); White Blood Count 9.5 10^3/uL (3.6-10.2)
[2024-01-10 06:57] LABS: Albumin 2.7 g/dL (3.2-5.2); Albumin/Globulin Ratio 0.8 (1-3); Calcium 8.3 mg/dL (8.6-10.3); Creatinine, Serum 0.53 mg/dL (0.67-1.17); Globulin 3.4 g/dL (2-4); Magnesium 2.2 mg/dL (1.9-2.7); Phosphorus 3.5 mg/dL (2.5-5.0); Potassium 4.2 mmol/L (3.5-5.0); Total Bilirubin 0.4 mg/dL (0.2-1.0); Total Protein 6.1 g/dL (6.4-8.9); eGFR CKD-EPI 103.2 (>60)
[2024-01-10] MEDS: Azithromycin 500 mg/250 ml NS 500 MG/250 ML BAG IVPB SCH (17:01)
[2024-01-10] MEDS: Nystatin TOP POWDER 15 GM BTL TOPICAL SCH (18:15)
[2024-01-10] MEDS: oxyCODONE 5 mg/5 ml ORAL.SOLN UDC G TUBE PRN (23:56)
[2024-01-11 06:06] LABS: ABS Eosinophils 0.1 10^3/uL (0.0-0.5); ABS Lymphocytes 0.9 10^3/uL (1.0-4.8); ABS Monocytes 0.4 10^3/uL (0.0-1.1); ABS Neutrophils 5.7 10^3/uL (1.5-7.6); Eosinophil % 2.1 %; Hematocrit 24.6 % (38-53); Hemoglobin 8.6 g/dL (13.2-16.3); Lymphocyte % 12.7 %; Mean Corpuscular Hemoglobin 34.3 pg (27-33); Mean Corpuscular Hgb Conc 34.9 g/dL (31-36); Mean Corpuscular Volume 98.1 fL (80-97); Mean Platelet Volume 6.7 fL (7.5-11.2); Platelet Count 360 10^3/uL (150-450); Red Blood Count 2.51 10^6/uL (4.06-5.63); Red Cell Distribution Width 17.4 % (12-17); White Blood Count 7.1 10^3/uL (3.6-10.2)
[2024-01-11 06:42] LABS: Albumin 2.4 g/dL (3.2-5.2); Albumin/Globulin Ratio 0.8 (1-3); Creatinine, Serum 0.56 mg/dL (0.67-1.17); Globulin 3.2 g/dL (2-4); Magnesium 2.1 mg/dL (1.9-2.7); Potassium 4.1 mmol/L (3.5-5.0); Total Bilirubin 0.3 mg/dL (0.2-1.0); Total Protein 5.6 g/dL (6.4-8.9); eGFR CKD-EPI 101.5 (>60)
[2024-01-11] MEDS: CMCS: Pantoprazole Packet (NF) 40 MG GRANPKT.DR PO SCH (11:20)
[2024-01-12 05:57] LABS: ABS Eosinophils 0.2 10^3/uL (0.0-0.5); ABS Lymphocytes 0.8 10^3/uL (1.0-4.8); ABS Monocytes 0.4 10^3/uL (0.0-1.1); ABS Neutrophils 6.6 10^3/uL (1.5-7.6); Hematocrit 24.3 % (38-53); Hemoglobin 8.4 g/dL (13.2-16.3); Lymphocyte % 9.7 %; Mean Corpuscular Hemoglobin 33.8 pg (27-33); Mean Corpuscular Hgb Conc 34.7 g/dL (31-36); Mean Corpuscular Volume 97.4 fL (80-97); Mean Platelet Volume 6.9 fL (7.5-11.2); Platelet Count 364 10^3/uL (150-450); Red Cell Distribution Width 16.8 % (12-17); White Blood Count 7.9 10^3/uL (3.6-10.2)
[2024-01-12] MEDS: CMCS: Pantoprazole Packet (NF) 40 MG GRANPKT.DR PEG TUBE SCH (10:37)
[2024-01-12] MEDS: CMCS:Pantoprazole Packet (NF) 40 MG GRANPKT.DR PEG TUBE SCH (21:12)
[2024-01-13 04:57] LABS: ABS Eosinophils 0.2 10^3/uL (0.0-0.5); ABS Lymphocytes 0.8 10^3/uL (1.0-4.8); ABS Monocytes 0.4 10^3/uL (0.0-1.1); ABS Neutrophils 5.7 10^3/uL (1.5-7.6); Eosinophil % 2.4 %; Hematocrit 24.5 % (38-53); Hemoglobin 8.5 g/dL (13.2-16.3); Lymphocyte % 10.9 %; Mean Corpuscular Hgb Conc 34.5 g/dL (31-36); Mean Corpuscular Volume 98.5 fL (80-97); Mean Platelet Volume 6.5 fL (7.5-11.2); Platelet Count 363 10^3/uL (150-450); Red Blood Count 2.49 10^6/uL (4.06-5.63); Red Cell Distribution Width 16.8 % (12-17)
[2024-01-13 05:40] LABS: Calcium 7.9 mg/dL (8.6-10.3); Creatinine, Serum 0.51 mg/dL (0.67-1.17); Potassium 4.1 mmol/L (3.5-5.0); eGFR CKD-EPI 104.4 (>60)
[2024-01-14 05:26] LABS: ABS Eosinophils 0.1 10^3/uL (0.0-0.5); ABS Lymphocytes 0.8 10^3/uL (1.0-4.8); ABS Monocytes 0.5 10^3/uL (0.0-1.1); ABS Neutrophils 7.7 10^3/uL (1.5-7.6); Eosinophil % 1.3 %; Hematocrit 27.5 % (38-53); Hemoglobin 9.6 g/dL (13.2-16.3); Mean Corpuscular Hemoglobin 34.3 pg (27-33); Mean Corpuscular Hgb Conc 34.7 g/dL (31-36); Mean Corpuscular Volume 98.8 fL (80-97); Mean Platelet Volume 6.8 fL (7.5-11.2); Platelet Count 419 10^3/uL (150-450); Red Blood Count 2.78 10^6/uL (4.06-5.63); White Blood Count 9.1 10^3/uL (3.6-10.2)
[2024-01-14 06:54] LABS: Calcium 8.6 mg/dL (8.6-10.3); Creatinine, Serum 0.5 mg/dL (0.67-1.17); Magnesium 1.8 mg/dL (1.9-2.7); eGFR CKD-EPI 105.1 (>60)
[2024-01-14] MEDS: Magnesium Sulfate 2 gm BAG 2 GM/50 ML BAG IVPB ONE (08:45)
[2024-01-14] MEDS ORDERED: Acetaminophen IV 1 GM/100ML 1,000 MG/100 ML BAG IV SCH (09:00)
[2024-01-14] MEDS: Acetaminophen IV 1 GM/100ML 1,000 MG/100 ML BAG IV ONE (09:19)
[2024-01-15 00:25] LABS: Calcium 8.3 mg/dL (8.6-10.3); Creatinine, Serum 0.52 mg/dL (0.67-1.17); Magnesium 2.2 mg/dL (1.9-2.7); Potassium 3.7 mmol/L (3.5-5.0); eGFR CKD-EPI 103.8 (>60)
[2024-01-15 06:12] LABS: ABS Basophils 0.1 10^3/uL (0.0-0.1); ABS Eosinophils 0.1 10^3/uL (0.0-0.5); ABS Lymphocytes 0.9 10^3/uL (1.0-4.8); ABS Monocytes 0.3 10^3/uL (0.0-1.1); ABS Neutrophils 4.8 10^3/uL (1.5-7.6); Eosinophil % 2.2 %; Hematocrit 24.4 % (38-53); Hemoglobin 8.8 g/dL (13.2-16.3); Lymphocyte % 14.8 %; Mean Corpuscular Hemoglobin 35.1 pg (27-33); Mean Corpuscular Hgb Conc 35.9 g/dL (31-36); Mean Corpuscular Volume 97.8 fL (80-97); Mean Platelet Volume 6.6 fL (7.5-11.2); Platelet Count 365 10^3/uL (150-450); Red Blood Count 2.49 10^6/uL (4.06-5.63); Red Cell Distribution Width 17.4 % (12-17); White Blood Count 6.2 10^3/uL (3.6-10.2)
[2024-01-15 06:23] LABS: Calcium 8.4 mg/dL (8.6-10.3); Creatinine, Serum 0.51 mg/dL (0.67-1.17); Magnesium 2.1 mg/dL (1.9-2.7); Potassium 3.9 mmol/L (3.5-5.0); eGFR CKD-EPI 104.4 (>60)
[2024-01-15 09:40] VITALS: BP 155/71
[2024-01-15 12:03] LABS: Rapid COVID-19 Molecular Undetected (Undetected)
== END 2024-01-15 12:55 | DRG 871 ==
LOC: ED 16:13 → EDHOLD 23:17 → ICU 23:17 → SUATTDRO 23:17 → ICU 01-02 00:25 → MED 01-07 15:06
PROVIDERS: ADMIT Hospitalist; ATTEND Student in an Organized Health Care Education/Training Program